=== PATIENT | male | born 1940 | race Hispanic/Latino ===

== ENCOUNTER → 2017-08-20 | Outpatient (CLI) | payer OTHER | END | disposition home or self-care (01) | LOC: OIH 12:29 | PROVIDERS: ATTEND Family Medicine | DX: M17.11 Unilateral primary osteoarthritis, right knee (principal) | CPT/HCPCS: 73562 ==

== ENCOUNTER 2024-01-23 16:05 | Emergency (ER) | payer OTHER ==
[~2024-01-23] VITALS: Ht 167.6 cm; Wt 68.0 kg
[2024-01-23] MEDS ORDERED: ROCURONIUM BROMIDE 10MG/1ML 5ML VL IV ONE (16:06)
[2024-01-23 17:17] LABS: BASOPHILS # (AUTO) 0.03 K/uL (0.00-0.20); BASOPHILS % (AUTO) 0.5 % (0.0-5.0); EOSINOPHILS # (AUTO) 0.09 K/uL (0.00-0.70); EOSINOPHILS % (AUTO) 1.4 % (0.0-8.0); HEMATOCRIT 37.9 % (42-54); IMMATURE GRANULOCYTE ABSOLUTE 0.02 K/uL (0-1); LYMPHOCYTES # (AUTO) 1.9 K/uL (1.0-4.8); LYMPHOCYTES % (AUTO) 30.2 % (21.0-51.0); MEAN CORPUSCULAR HEMOGLOBIN 30.1 pg (27.0-33.0); MEAN CORPUSCULAR HGB CONC 34.6 g/dL (32.0-36.0); MEAN CORPUSCULAR VOLUME 87.1 fL (79-99); MONOCYTES # (AUTO) 0.5 K/uL (0.1-1.0); MONOCYTES % (AUTO) 8.4 % (3.0-13.0); NEUTROPHILS # (AUTO) 3.7 K/uL (1.8-7.7); NEUTROPHILS % (AUTO) 59.2 % (40.0-77.0); PLATELET COUNT (AUTO) 172 K/uL (130-400); RED BLOOD CELL COUNT(AUTO) 4.35 MIL/uL (4.50-6.20); RED CELL DISTRIBUTION WIDTH 12.6 % (11.0-15.5); WHITE BLOOD COUNT (AUTO) 6.3 K/uL (4.8-10.8)
[2024-01-23] MEDS: MANNITOL 25% 50ML VIAL IV SCH (17:30)
[2024-01-23 17:39] LABS: CREATININE 1.3 mg/dL (0.5-1.3); POTASSIUM 4.4 mmol/L (3.5-5.1)
[2024-01-23] MEDS: KETAMINE 50MG/ML SYRINGE 50 MG/ML DISP.SYRIN IV ONE (17:49)
[2024-01-23] MEDS: ROCURONIUM BROMIDE 10MG/1ML 5ML VL ONE (17:50)
[2024-01-23] MEDS: PROPOFOL 1000 MG/100 ML 100 ML IV ONE (17:54)
[2024-01-23 18:13] VITALS: PULSE 79; O2SAT 100
[2024-01-23] MEDS ORDERED: ROCURONIUM BROMIDE 100 MG in 0.9%NACL 100ML 100 ML IV SCH (18:30)
[2024-01-23] MEDS: KETAMINE 50MG/ML SYRINGE 50 MG/ML DISP.SYRIN ONE (18:56)
[2024-01-23 19:39] LABS: INR 1.1 (0.85-1.15); PROTHROMBIN TIME 11.8 SEC (9.6-11.6)
[2024-01-23] MEDS: [UNRECOGNIZED DRUG - OTHER] IV SCH (19:39)
[2024-01-23] MEDS: ROCURONIUM BROMIDE IV SCH (19:39)
[2024-01-23] MEDS: NICARDIPINE 50 MG in 0.9% NACL 250ML IV SCH (19:45)
[2024-01-23 19:54] LABS: ABG BASE EXCESS -0.8 mmol/L (-2.0-3.0); ABG HCO3 22.2 mmol/L (21.0-28.0); ABG OXYGEN SATURATION 96.8 % (95.0-99.0); ABG PCO2 32 mmHg (35-48); ABG PH 7.455 (7.35-7.450); DEVICE COMMENT LR RN MAYRA; PO2, ARTERIAL BG 83.8 mmHg (83.0-108.0); VENT MODE, BG ACVC (ROOM AIR)
[2024-01-23 20:12] VITALS: PULSE 79; O2SAT 100
[2024-01-23] MEDS ORDERED: PROPOFOL 1000 MG/100 ML 100 ML IV ONE (22:42)
[2024-01-23 22:50] VITALS: BP 118/58; PULSE 69; RESP 18; O2SAT 100
== END 2024-01-23 23:03 | disposition short-term general hospital (02) ==
LOC: EDH 16:05
DX: I62.00 Nontraumatic subdural hemorrhage, unspecified (principal); E11.9 Type 2 diabetes mellitus without complications; E78.00 Pure hypercholesterolemia, unspecified; G20.A1 Parkinson's disease without dyskinesia, without mention of fluctuations; I10 Essential (primary) hypertension; Z90.49 Acquired absence of other specified parts of digestive tract
CPT/HCPCS: 99285; 31500; 96374; 70450; 71045 ×2; 84484; 80048; 82803; 85025; 85610; 36415; 93005 ×2; 36600; J2150; J3490 ×6; J2704 ×2; J7050; 94002